=== PATIENT | male | born 1980 | race Caucasian/White ===

== ENCOUNTER 2017-01-30 15:02 | Emergency (ER) | payer SELFPAY ==
[2017-01-30] MEDS ORDERED: ONDANSETRON HCL/PF 4 MG/ 2ML VIAL IVP ONE (15:16)
[2017-01-30] MEDS: 0.9 % SODIUM CHLORIDE 1,000 ML IV ONE ×2 (15:32→19:20)
[2017-01-30 15:51] LABS: MEAN CORPUSCULAR VOLUME 90.6 fl (80.0-100.0)
[2017-01-30 15:59] LABS: BASOPHILS % 1 % (0-2); MONOCYTES % 4 % (0-11); SEGMENTED NEUTROPHILS % 90 % (39-79); eGFR (African) > 60; eGFR (Non-African) > 60
--- NOTE | 2017-01-30 17:17 | ED Physician Documentation ---
General Adult - HISTORIAN Historian: patient - HPI Stated Complaint: Abdominal pain Chief Complaint: General Adult Onset: days ago (1) Timing: still present Severity: moderate Further Comments: yes (Pt is a 36 yo male with n/v, diarrhea and foul breath x 1 day. Pt states that when he burps it smells like feces and that other people have commented on this. Pt has had no blood in vomitus or bm's.) - ROS CONST: chills, other (malaise) EYES/ENT: none CVS/RESP: none GI/: abdominal pain, vomiting, nausea, diarrhea MS/SKIN/LYMPH: none - PAST HX Past History: none Other History: none Allergies/Adverse Reactions: Allergies Allergy/AdvReac Type Severity Reaction Status Date / Time Penicillins Allergy Severe Mouth Verified 01/30/17 15:14 Swelling Home Medications: Ambulatory Orders Medication Instructions Recorded Gabapentin [Neurontin] 600 mg D 01/30/17 Tizanidine HCl [Zanaflex] 4 mg D 01/30/17 Tramadol HCl [Ultram] 50 mg D 01/30/17 - SOCIAL HX Smoking History: cigarettes - FAMILY HX Family History: No - VITAL SIGNS Vital Signs: Vital Signs Temp Pulse Resp BP Pulse Ox 98.1 F 105 H 22 138/94 98 01/30/17 15:10 01/30/17 15:10 01/30/17 15:10 01/30/17 15:10 01/30/17 15:10 - REVIEWED ASSESSMENTS Nursing Assessment Reviewed: Yes Vitals Reviewed: Yes Progress - Progress Progress: NS 1 L IVF x 2 Zofran [address] w IV contrast: The lung bases, liver, air, spleen, pancreas, kidneys and adrenal glands are normal. There is no biliary duct dilatation. The portal vein enhances normally. There is no hydronephrosis, hydroureter, free intraperitoneal air, fluid or adenopathy. There is no bowel obstruction. The appendix is normal. There is no malrotation. The appearance of the mesentery suggests mesenteric volvulus. The aorta enhances normally. 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 d/w [facility] GI Dr. Flanagan, transfer to [facility] ER. Dr. Parisi. ED Results Lab/Radiology - Lab Results Lab Results: Lab Results 01/30/17 01/30/17 01/30/17 15:40 15:40 15:40 WBC 25.30 K/ul H K/ul (4.00-12.00) RBC 5.83 M/ul H M/ul (3.90-5.20) Hgb 16.9 g/dL g/dL (12.0-18.0) Hct 52.8 % % (37.0-53.0) MCV 90.6 fl fl (80.0-100.0) MCH 29.0 pg pg (28.0-34.0) MCHC 32.0 g/dL g/dL (30.0-36.0) RDW 12.4 % % (11.3-14.3) Plt Count 444 K/mm3 H K/mm3 (130-400) Seg Neutrophils % 90 % H % (39-79) Band Neutrophils % 2 % % (0-12) Lymphocytes % 3 % L % (16-50) Monocytes % 4 % % (0-11) Basophils % 1 % % (0-2) Plt Morphology Comment Normal (NORMAL) RBC Morph Comment Normal (NORMAL) Sodium 139 mmol/L mmol/L (136-145) Potassium 4.3 mmol/L mmol/L (3.5-5.1) Chloride 104 mmol/L mmol/L (98-107) Carbon Dioxide 25 mmol/L mmol/L (22-30) BUN 10 mg/dL mg/dL (9-20) Creatinine 0.80 mg/dL mg/dL (0.66-1.25) Estimated Creat Clear 141 Est GFR ( Amer) > 60 (60 - ) Est GFR (Non-Af Amer) > 60 (60 - ) Glucose 107 mg/dL H mg/dL (74-106) Calcium 9.4 mg/dL mg/dL (8.4-10.2) Total Bilirubin 0.5 mg/dL mg/dL (0.2-1.3) AST 25 U/L U/L (15-46) ALT 51 U/L U/L (13-69) Alkaline Phosphatase 85 U/L U/L (38-126) Total Protein 7.7 g/dL g/dL (6.3-8.2) Albumin 4.3 g/dL g/dL (3.5-5.0) Lipase 121 U/L U/L (23-300) - Orders Orders: ED Orders Category Date Time Status Place IV Lock 1T Care 01/30/17 15:[address] ABD & PELVIS W/ CON Stat Exams 01/30/17 Ordered CBC/PLATELET/DIFF Routine Lab 01/30/17 15:40 Completed CMP Routine Lab 01/30/17 15:40 Completed LIPASE Stat Lab 01/30/17 15:40 Completed URINALYSIS Routine Lab 01/30/17 Ordered 0.9 % Sodium Chloride [Normal Saline] 1,000 ml Med 01/30/17 15:16 Discontinued IV Q1H Ondansetron HCl/Pf [Zofran 4 mg/2 ml] Med 01/30/17 15:16 Discontinued 4 mg IVP NOW ONE Transfer Routine Transfer 01/30/17 Ordered General Adult Physical Exam - PHYSICAL EXAM GENERAL APPEARANCE: moderate distress EENT: pharynx normal NECK: normal inspection, supple RESPIRATORY: no resp distress, chest non-tender, breath sounds normal CVS: reg rate & rhythm, heart sounds normal ABDOMEN: soft, tenderness (moderate diffuse abd tenderness), increased BS BACK: normal inspection, no CVA tenderness SKIN: warm/dry, normal color EXTREMITIES: non-tender, normal range of motion, no evidence of injury NEURO: oriented X3, motor nml, sensation nml Discharge Clincal Impression: abd pain, mesenteric volvulus Referrals: Crystal Armando MD [Primary Care Provider] - Condition: Stable Disposition: XFER SHT-TRM HOSP Decision to Admit: NO Decision Time: 18:52
[2017-01-30 19:25] VITALS: BP 106/66
--- NOTE | 2017-01-30 20:04 | Diagnostic Imaging Report ---
LU MARISCAL [facility] [address] [facility] [address] [place] [address]. [id number] Report Submission Date: Jan 30, 2017 5:37:51 PM DOG BOARDER Patient Study Name: CHAVA PEREZ Date: Jan 30, 2017 5:06:42 PM DOG BOARDER Modality Type: CT\SR Gender: M Description: CT ABD & PELVIS W/ CON : 84 Institution: [facility] Physician: LU MARISCAL CT abdomen and pelvis with intravenous contrast History: Abdominal pain, vomiting, diarrhea Technique: Images through the abdomen and pelvis were obtained following intravenous contrast administration. Findings: The lung bases, liver, air, spleen, pancreas, kidneys and adrenal glands are normal. There is no biliary duct dilatation. The portal vein enhances normally. There is no hydronephrosis, hydroureter, free intraperitoneal air, fluid or adenopathy. There is no bowel obstruction. The appendix is normal. There is no malrotation. The appearance of the mesentery suggests mesenteric volvulus. The aorta enhances normally. 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 Electronically signed on Jan 30, 2017 5:37:51 PM DOG BOARDER by: Tejinder BOLTON
== END 2017-01-30 19:30 | disposition short-term general hospital (02) ==
LOC: ED 15:02
DX: R10.9 Unspecified abdominal pain (principal); K56.2 Volvulus
CPT/HCPCS: 74177; 80053; 83690; 85025; J2405; J7030; 96361; 96374; 99284; Q9967; S1016

== ENCOUNTER 2018-07-03 17:36 | Emergency (ER) | payer SELFPAY ==
[2018-07-03] MEDS: TETRACAINE 0.5% OPTH 5 ML BOTTLE OS ONE (17:45)
[2018-07-03 17:58] VITALS: BP 107/70
--- NOTE | 2018-07-03 18:05 | ED Physician Documentation ---
Eye Problem - HISTORIAN Historian: patient - HPI Stated Complaint: Foreign Object in L eye Chief Complaint: Eye Problems (Foreign body in Left Eye) Additional Information: Patient is a 38-year-old male that presents to the ER with c/o left eye irritation. Patient states that he was mowing the yard and he ran over a dog bone and feels like something flew in his eye. He doesn't think that anything is in it- just feels irritated. He is also requesting an antibiotic for his dental pain. Denies any loss of vision. Onset: minutes Associated symptoms: itching, redness Location: left eye Severity: mild Apparent Injury: possibly Context: foreign body (mowing yard) Eyes Irrigated With:: x4 saline flushes Where: home Other Injuries: denies: neck, head - ROS CONST: no problems MS/SKIN/LYMPH: denies: neck pain, rash CVS/RESP: none EYES/ENT: none GI/: denies: nausea, vomiting NEURO: denies: headache - PAST HX Past History: other (spinal bifida) Immunizations: tetanus, UTD Allergies/Adverse Reactions: Allergies Allergy/AdvReac Type Severity Reaction Status Date / Time Penicillins Allergy Severe Mouth Verified 07/03/18 17:58 Swelling Home Medications: Ambulatory Orders Medication Instructions Recorded Tramadol HCl [Ultram] 50 mg PO D 01/30/17 Clindamycin HCl 300 mg PO QID #40 capsule 07/03/18 Polymyxin B/Trimethoprim Opth 1 drop OP Q3H #1 bottle 07/03/18 [Polytrim Opth] - SOCIAL HX Smoking History: less than 1 pack/day Alcohol Use: none Drug Use: marijuana - FAMILY HX Family History: none - VITAL SIGNS Vital Signs: Vital Signs Temp Pulse Resp BP Pulse Ox 60 15 107/70 07/03/18 17:40 07/03/18 17:40 07/03/18 17:40 - REVIEWED ASSESSMENTS Nursing Assessment Reviewed: Yes Vitals Reviewed: Yes Procedures - Eye Procedure Alcaine Drops Administered: Yes Eye FB Removal: removal w/ cotton swab Eye Irrigated w/ Saline (ccs): 100 Progress: Patient states eye feels much better ED Results Lab/Radiology - Orders Orders: ED Orders Category Date Time Status Tetracaine 0.5% Opth [Pontocaine Pf 0.5% Opth] Med 07/03/18 17:45 Discontinued 2 drop OS NOW ONE Eye Problem Physical Exam - Physical Exam General Appearance: alert, mild distress Examined with Slit Lamp: No Visual Acuity: see nursing assessment Eyelids: foreign body under eyelid (L) Conjunctiva and Sclera: injected (L), foreign material (L) (removed) Corneas: fluorescein dye uptake (L), examined with fluorescein (L) EOM: intact Pupils: equal Head/ENT: nml inspection, pharynx nml Skin: nml color, warm, skin intact Neck/Back: nml inspection Respiratory: breath sounds normal CVS: heart sounds normal Abdomen: nml bowel sounds Neuro/Psych: oriented x3, neuro intact, mood/affect nml Discharge Clincal Impression: Dental caries, Foreign body of left eye Prescriptions: Clindamycin HCl 300 mg PO QID #40 capsule Polymyxin B/Trimethoprim Opth [Polytrim Opth] 1 drop OP Q3H #1 bottle Referrals: Crystal Armando MD [Primary Care Provider] - 2 Days Additional Instructions: Use prescription eye drops as directed (1 drop into the affected eye 4 times a day) Take Clindamycin 300 mg by mouth 4 times a day for dental infection Wear glasses (sunglasses) when mowing the yard See Dentist TREY Follow up with PCP next week Condition: Good Disposition: 01 HOME, SELF-CARE Decision to Admit: NO Decision Time: 18:10
== END 2018-07-03 18:10 | disposition home or self-care (01) ==
LOC: ED 17:36
DX: T15.12XA Foreign body in conjunctival sac, left eye, initial encounter (principal); K02.9 Dental caries, unspecified; W45.8XXA Other foreign body or object entering through skin, initial encounter; Y93.H2 Activity, gardening and landscaping; Y92.007 Garden or yard of unspecified non-institutional (private) residence as the place of occurrence of the external cause
CPT/HCPCS: 65205; 99283; 99284